=== PATIENT | female | born 1950 | race Caucasian/White ===

== ENCOUNTER 2018-12-29 15:51 | Inpatient (IN) ==
[2018-12-31] MEDS ORDERED: *HR* HYDROcodone/Acet 7.5/325 mg TABLET PO PRN ×2 (11:47→11:58)
[2018-12-31] MEDS ORDERED: MEPERIDINE HCL 50 MG PO PRN (11:48)
[2018-12-31] MEDS ORDERED: NON-FORMULARY MEDICATION 1 EACH EACH (Alendronate Sodium [Fosamax] 70 MG) PO SCH (12:00)
[2018-12-31] MEDS: *HR* HYDROcodone/Acet 5/325 mg TABLET PO PRN ×3 (13:02→22:03)
[2018-12-31] MEDS ORDERED: Aspirin 325 MG TABLET PO SCH (21:00)
[2018-12-31] MEDS: Aspirin 325 MG TABLET PO SCH (22:02)
[2018-12-31] MEDS: traZODone 50 MG TABLET PO SCH (22:04)
[2018-12-31] MEDS: FATTY ACIDS PO SCH (22:06)
[2018-12-31] MEDS: OMEGA PO SCH (22:06)
[2019-01-01 04:56] LABS: Basophils % 0.9 %; Eosinophils # 0.2 K/mcL (0.0-0.6); Eosinophils % 3.9 %; Hematocrit 25.5 % (35.3-44.9); Hemoglobin 8.3 g/dL (11.5-15.4); Immature Granulocytes % 0.4 % (0-4); Lymphocytes # 1.6 K/mcL (0.6-4.6); Lymphocytes % 33.5 %; Mean Corpuscular HGB Conc 32.5 g/dL (31.6-35.5); Mean Corpuscular Volume 92.1 fL (83.0-100.0); Mean Platelet Volume 8.7 fL (9.4-12.4); Monocytes # 0.4 K/mcL (0.0-1.3); Monocytes % 8.8 %; Neutrophils # 2.5 K/mcL (1.6-8.9); Platelet Count 222 K/mcL (140-400); Red Blood Count 2.77 M/mcL (3.82-4.97); Red Cell Distribution Width 13.6 % (11.5-14.5); Segmented Neutrophils % 52.5 %
[2019-01-01 05:13] LABS: BUN/Creatinine Ratio 14 (6-26); Blood Urea Nitrogen 10 mg/dL (8-23); Calcium 8.7 mg/dL (8.6-10.3); Carbon Dioxide 34 mEq/L (23-29); Chloride 103 mEq/L (98-107); Glucose 107 mg/dL (70-105); Osmolality,Calculated 294 (280-300); Potassium 3.5 mEq/L (3.5-5.1); Sodium 142 mEq/L (136-145); eGFR For Non-African Americans > 60 (> 60)
[2019-01-01] MEDS: *HR* HYDROcodone/Acet 5/325 mg TABLET PO PRN ×5 (05:20→23:55)
--- NOTE | 2019-01-01 07:15 | Internal Med History&Physical ---
Date of Encounter: 01/01/19 Time of Encounter: 07:08 Assessment and Plan (1) Status post revision of total replacement of left knee Current visit: Yes Status: Acute Status post left knee revision per Dr. Thomas at [facility]. She has limitations of flexion of the knee. She is to be in a knee immobilizer when not in physical therapy. She is touch toe weightbearing. Therapy may manipulate her knee to 30 degrees. She states her pain is under good control with hydrocodone. No obvious complications postoperatively. DVT prophylaxis is aspi rin twice a day per Dr. Thomas. I would have a low threshold in starting Lovenox as well. (2) History of palpitations Current visit: Yes Status: Chronic She takes a beta jeaneth for history of tachycardia/palpitations and is been well controlled. She does not have hypertension. (3) Fibromyalgia Current visit: Yes Status: Chronic She has a chronic history of fibromyalgia/chronic pain. At home she typically uses tramadol frequently and has meperidine for breakthrough pain. Currently we will keep her pain medication to hydrocodone postoperatively (4) Depression Current visit: Yes Status: Chronic Chronically she has depression. She is fairly well controlled with her trazodone and citalopram. She also has some anxiety and takes alprazolam occasionally. She is not suicidal. We will continue her chronic medication. Qualifiers: Depression Type: dysthymia Qualified Code(s): F34.1 - Dysthymic disorder (5) Anxiety Current visit: Yes Status: Chronic Patient chronically has anxiety mixed with depression. She has alprazolam for occasional use. She thinks she will need one in the evening when she becomes anxious and makes it difficult for her to sleep. (6) Postoperative anemia due to acute blood loss Current visit: Yes Status: Acute Her hemoglobin is now down to 8.3. The last hemoglobin in the [facility] records was 10. Her knee swelling and bruising is not extensive. We will recheck her count tomorrow. Internal Medicine - H&P: HPI Chief complaint: I am here after my knee surgery Admitted From: Hospital to Hospital Transfer Plans for Post Hospital Care: Home History of present illness: Ms. Ramos is a 68 year old female with known history of fibromyalgia, depression, anxiety who underwent revision left total knee arthroplasty with removal and insertion femoral and tibial components. She is here for rehab. She had no complications from her surgery. She thinks her pain is under adequate control. Chronically she has multiple medical problems including for myalgia, palpitations, chronic pain and depression. Currently she denies chest pain, palpitations, dyspnea, abdominal pain, GI or symptoms. The ice pack is helpful to her knee. Past Med Surg Social Fam HX - Past Medical History Source: patient, old records reviewed Medical history: arthritis, fibromyalgia, migraine, osteoporosis, valvular heart disease, other Additional medical history: mitral valve prolapse/palpitations, depression Psychiatric history: anxiety, depression - Past Surgical History Surgical History: appendectomy, breast surgery, cataract, cholecystectomy, hip replacement, hysterectomy, other Additional surgical history: breast implantsx2, breast implant removal, masectomy, upper teeth pulled, pneumothorax, pain stimulator. 02/26/17 MYELOGRAM @[facility]. bones removed bilat hands - Social History Smoking Status: Never smoker Smokeless Tobacco Status: No Alcohol use: none Drug use: none Occupational status: other Current living situation: Home - Independent, Other (She lives in a one-story home.) Activity Level: Independent ambulation (Independent ambulation at home, postop she requires a walker) Recent Out of Country Travel Within the Last 8 Weeks: No Exposure or Possible Exposure to Illness During Travel: No - Family History Brother Living Status: Still Living Hx Family Cancer: No (melanoma) Father Adopted: No Living Status: Hx Family Respiratory Disorders: Yes Hx Family Cancer: Yes (leukemia) Mother Living Status: Hx Family Respiratory Disorders: Yes Hx Family Cancer: Yes Sister Hx Family Cardiac Disorders: Yes Internal Medicine - H&P: Meds RX: Acebutolol HCl [Sectral] 200 mg PO HS 06/20/15 [History] RX: Alprazolam [Xanax] 1 mg PO TID PRN 06/20/15 [History] RX: Calcium Carbonate/Vitamin D3 [Calcium 600 + D Tablet] 1 each PO DAILY 07/28/15 [History] RX: Citalopram [CeleXA] 40 mg PO 2100 07/28/15 [History] [place]-3 Fatty Acids [Fish Oil] 1,400 mg PO HS 05/17/16 [History] Promethazine [Phenergan] 25 mg PO Q6HR PRN 07/23/16 [History] Simvastatin [Zocor] 20 mg PO DAILY 07/23/16 [History] Alendronate Sodium [Fosamax] 70 mg PO QWEEK 12/07/18 [History] Mv, Min #36/Iron,Carbonyl/FA [Geritol Complete Tablet] 1 each PO DAILY 12/07/18 [History] RX: Meperidine HCl 50 mg PO Q6HR PRN 12/07/18 [History] RX: traZODone [TraZODone] 150 mg PO 2100 12/07/18 [History] Multivitamin [Daily Multiple Vitamin] 1 each PO DAILY 12/31/18 [History] Allergy/AdvReac Type Severity Reaction Status Date / Time methylprednisolone Allergy Mild Rash Verified 05/04/17 13:25 [From Solu-Medrol] oxycodone [From Percocet] Allergy Mild Rash Verified 05/04/17 13:25 Penicillins [PCN] Allergy Mild Rash Verified 05/04/17 13:25 acetaminophen [From Vicodin] AdvReac Mild Nausea Verified 05/04/17 13:25 bupropion AdvReac Mild Hallucinati Verified 05/04/17 13:25 ng gabapentin AdvReac Mild Nausea Verified 05/04/17 13:25 hydrocodone [From Vicodin] AdvReac Mild Nausea Verified 05/04/17 13:25 morphine [From MS Contin] AdvReac Mild Confusion Verified 05/04/17 13:25 naproxen [From Naprosyn] AdvReac Mild Nausea Verified 05/04/17 13:25 amlodipine AdvReac Unknown UNKNOWN Verified 05/04/17 13:25 metoclopramide [From Reglan] AdvReac Unknown UNKNOWN Verified 03/11/17 15:05 pregabalin [From Lyrica] AdvReac Unknown UNKNOWN Verified 03/11/17 15:05 zonisamide AdvReac Unknown UNKNOWN Verified 03/11/17 15:05 - Constitutional Constitutional: no chills, no fever(s) - EENT Eyes: no change in vision Ears: no ear pain Nose, mouth and throat: no sore throat - Cardiovascular Cardiovascular ROS IM: no chest pain, no diaphoresis, no palpitations - Respiratory Respiratory: no cough, no dyspnea, no chest congestion - Gastrointestinal Gastrointestinal: no constipation, no diarrhea, no loose stools, no nausea, no vomiting - Genitourinary Genitourinary: no difficulty urinating, no urinary frequency, no urinary incontinence - Musculoskeletal Musculoskeletal ROS IM: as per HPI, limited range of motion (Recommended to not flex the left knee and to use a knee immobilizer when not in therapy.) - Integumentary Integumentary IM: no rash - Neurological Neurological ROS: no confusion, no dizziness, no focal weakness - Psychiatric Psychiatric: anxiety (Patient has anxiety chronically, wants to know if she can use alprazolam in the evening if she becomes anxious before bedtime) - Constitutional Vitals: Temp Pulse Resp BP Pulse Ox 98.0 F 71 16 107/66 94 01/01/19 04:00 01/01/19 04:00 01/01/19 04:00 01/01/19 04:00 01/01/19 04:00 General appearance: Present: mild distress, A&O X 3 - Eye Additional comments: Chronically left eyelid is slightly ptotic compared to the right. EOMI - ENT ENT exam: Present: normal oropharynx (Upper set of dentures) - Respiratory Respiratory exam: Present: CTAB. Absent: respiratory distress - Cardiovascular Cardiovascular exam: Present: RRR, +S1, +S2 - GI/Abdominal GI/Abdominal exam: Present: soft. Absent: hepatomegaly, mass, tenderness - Extremities Exam Additional comments: Left lower extremity is in a knee immobilizer. The incision has a dressing which is intact and no signs of bleeding or drainage. Mild/appropriate swelling at the knee joint. Slight bruising in the left lateral knee and popliteal area. Mildly warm throughout. Slight swelling of the left lower extremity compared to the right. No calf tenderness. Negative Homans sign. No skin breakdown. Left heel is without skin breakdown. Right lower extremity is normal with good range of motion, no calf tenderness. No edema. - Incison Comments: Incision has an adhesive dressing which is intact. No bleeding or drainage noted. No surrounding redness or signs of infection. - Neurological Exam Neurological exam: Present: oriented X3, no focal deficits - Psychiatric Psychiatric exam: Present: flat affect Internal Med - H&P Results - Labs CBC & Chem 7: 01/01/19 04:49 01/01/19 04:49 Labs: Short CBC 01/01/19 Range/Units 04:49 WBC 4.7 (4.3-11.1) K/mcL Hgb 8.3 L (11.5-15.4) g/dL Hct 25.5 L (35.3-44.9) % Plt Count 222 (140-400) K/mcL Neutrophils # 2.5 (1.6-8.9) K/mcL BMP 01/01/19 04:49 Sodium 142 Potassium 3.5 Chloride 103 Carbon Dioxide 34 H BUN 10 Creatinine 0.69 Glucose 107 H Calcium 8.7 Hemoglobin 8.3. Previous was 10 at [facility].
[2019-01-01] MEDS ORDERED: MV MIN PO SCH (09:00)
[2019-01-01] MEDS ORDERED: [UNRECOGNIZED DRUG - OTHER] PO SCH (09:00)
[2019-01-01] MEDS ORDERED: NON-FORMULARY MEDICATION 1 EACH EACH (Calcium Carbonate/Vitamin D3 [Calcium 600 + D Tablet PO SCH (09:00)
[2019-01-01] MEDS ORDERED: IRON CARBONYL PO SCH (09:00)
[2019-01-01] MEDS: Cholecalciferol (D-3) 1,000 UNIT TABLET PO SCH (09:18)
[2019-01-01] MEDS: Aspirin 325 MG TABLET PO SCH ×2 (09:18→20:59)
[2019-01-01] MEDS: Multivit/Ca/Min/Fe/FA 1 TAB TABLET PO SCH (09:19)
--- NOTE | 2019-01-01 19:57 | Event Note ---
Date of Encounter: 01/01/19 Time of Encounter: 19:57 I checked on this patient this evening to see how she was doing. Her biggest complaint is "migraine headache". She received hydrocodone as her postop pain medication a few hours ago. We gave her promethazine that she frequently will use if she gets a migraine headache and has to come to the emergency room. She seems to be resting quietly, she said she was not sleeping though. I told her that we can repeat the promethazine as helpful, she will have her alprazolam tonight for anxiety and sleep as well. She is not due for her hydrocodone for a couple of hours. I told her we are trying to avoid oversedation and overmedication with opiates. In the past she has not tolerated Imitrex or other traditional migraine headache medications. She states she has pain in the anterior velez after therapy. I believe it is because she is touched toe only and she has strained that region. She has no calf tenderness. She currently has a polar pack on her knee, but it is not cold now and needs to be re-iced. Her vitals are stable. She is resting quietly in bed.
[2019-01-01] MEDS: ALPRAZolam 1 MG TABLET PO PRN (21:00)
[2019-01-01] MEDS: traZODone 50 MG TABLET PO SCH (21:01)
[2019-01-01] MEDS: FATTY ACIDS PO SCH (21:03)
[2019-01-01] MEDS: OMEGA PO SCH (21:03)
[2019-01-02] MEDS: *HR* HYDROcodone/Acet 5/325 mg TABLET PO PRN ×4 (06:30→18:47)
[2019-01-02 07:19] LABS: Chol/HDL Ratio 3.6 (0-4.9)
[2019-01-02] MEDS: Cholecalciferol (D-3) 1,000 UNIT TABLET PO SCH (08:09)
[2019-01-02] MEDS: Multivit/Ca/Min/Fe/FA 1 TAB TABLET PO SCH (08:09)
[2019-01-02] MEDS: Aspirin 325 MG TABLET PO SCH ×2 (08:09→22:02)
--- NOTE | 2019-01-02 17:34 | Internal Med Progress Note ---
Date of Encounter: 01/02/19 Time of Encounter: 13:40 - Subjective Interval history: Assessment and Plan (1) Status post revision of total replacement of left knee Current visit: Yes Status: Acute Status post left knee revision per Dr. Thomas at [facility]. She has limitations of flexion of the knee. She is to be in a knee immobilizer when not in physical therapy. She is touch toe weightbearing. Therapy may manipulate her knee to 30 degrees. She states her pain is under good control with hydrocod one. No obvious complications postoperatively. DVT prophylaxis is aspirin twice a day per Dr. Thomas. She is not moving much, will start Lovenox as well due to poor mobility. (2) History of palpitations Current visit: Yes Status: Chronic She takes a beta jeaneth for history of tachycardia/palpitations and is been well controlled. No chest pain. She does not have hypertension. (3) Fibromyalgia Current visit: Yes Status: Chronic She has a chronic history of fibromyalgia/chronic pain. At home she typically uses tramadol frequently and has meperidine for breakthrough pain. Currently we will keep her pain medication to hydrocodone postoperatively (4) Depression Current visit: Yes Status: Chronic Chronically she has depression. She is fairly well controlled with her trazodone and citalopram. She also has some anxiety and takes alprazolam occasi onally. She is not suicidal. We will continue her chronic medication. Qualifiers: Depression Type: dysthymia Qualified Code(s): F34.1 - Dysthymic disorder (5) Anxiety Current visit: Yes Status: Chronic Patient chronically has anxiety mixed with depression. She has alprazolam for occasional use. She thinks she will need one in the evening when she becomes anxious and makes it difficult for her to sleep. (6) Postoperative anemia due to acute blood loss Current visit: Yes Status: Acute Her hemoglobin is now down to 8.3. The last hemoglobin in the [facility] records was 10. No excessive blood loss or bleeding active. We will follow count Interval History Ms. Ramos is a 68 year old female with known history of fibromyalgia, depression, anxiety who underwent revision left total knee arthroplasty with removal and insertion femoral and tibial components. She is here for rehab. She had no complications from her surgery. She is eating fair Had good BM today She says pain is controlled Chronically she has multiple medical problems including for myalgia, palpitations, chronic pain and depression. Currently she denies chest pain, palpitations, dyspnea, abdominal pain, GI or symptoms. EXAM: General appearance: Present: mild distress, A&O X 3 thin WF - Eye Additional comments: Chronically left eyelid is slightly ptotic compared to the right. EOMI - ENT ENT exam: Present: normal oropharynx (Upper set of dentures) - Respiratory Respiratory exam: Present: CTAB. Absent: respiratory distress - Cardiovascular Cardiovascular exam: Present: RRR, +S1, +S2 - GI/Abdominal GI/Abdominal exam: Present: soft. Absent: hepatomegaly, mass, tenderness - Extremities Exam Additional comments: Left lower extremity has superficial excoriation to mid velez. She was in a knee immobilizer. Stated feeling that the hose caused rub on velez. There are no signs of bleeding or drainage. Mild/appropriate swelling at the knee joint. Slight bruising in the left lateral knee and popliteal area. Mildly warm throughout. Slight swelling of the left lower extremity compared to the right. No calf tenderness. Left heel is without skin breakdown. Right lower extremity is normal with good range of motion, no calf tenderness. - Neurological Exam Neurological exam: Present: oriented X3, no focal deficits - Psychiatric Psychiatric exam: Present: alert oriented talkative slight flat affect - Constitutional Vitals: Temp Pulse Resp BP Pulse Ox 97.8 F 69 15 120/54 97 01/02/19 07:47 01/02/19 07:47 01/02/19 07:47 01/02/19 07:47 01/02/19 07:47 General appearance: Present: mild distress, A&O X 3 Internal Medicine: Result - Labs CBC & Chem 7: 01/02/19 06:25 01/01/19 04:49 Labs: Short CBC 01/02/19 Range/Units 06:25 Hgb 8.4 L (11.5-15.4) g/dL Consult Discharge Plan - Plan Referrals: John Patel MD [Primary Care Provider] -
[2019-01-02] MEDS: ALPRAZolam 1 MG TABLET PO PRN (18:52)
[2019-01-02] MEDS: Ketorolac 30 MG/ML VIAL IM PRN (20:34)
[2019-01-02] MEDS ORDERED: *HR* LORazepam 0.5 MG TABLET PO ONE (21:48)
[2019-01-02] MEDS: Famotidine 20 MG TABLET PO SCH (22:04)
[2019-01-02] MEDS: traZODone 50 MG TABLET PO SCH (22:04)
[2019-01-02] MEDS: FATTY ACIDS PO SCH (22:06)
[2019-01-02] MEDS: OMEGA PO SCH (22:06)
[2019-01-03] MEDS: *HR* HYDROcodone/Acet 5/325 mg TABLET PO PRN ×5 (00:41→22:42)
[2019-01-03 05:16] LABS: Hematocrit 25.4 % (35.3-44.9); Hemoglobin 7.9 g/dL (11.5-15.4); Mean Corpuscular HGB Conc 31.1 g/dL (31.6-35.5); Mean Corpuscular Hemoglobin 29.4 pg (28.0-33.3); Mean Corpuscular Volume 94.4 fL (83.0-100.0); Mean Platelet Volume 8.8 fL (9.4-12.4); Platelet Count 299 K/mcL (140-400); Red Blood Count 2.69 M/mcL (3.82-4.97); Red Cell Distribution Width 14.3 % (11.5-14.5)
[2019-01-03] MEDS ORDERED: *HR* Enoxaparin 30 MG/0.3 ML SYRINGE SQ SCH (06:00)
[2019-01-03] MEDS: Cholecalciferol (D-3) 1,000 UNIT TABLET PO SCH (08:19)
[2019-01-03] MEDS: Aspirin 325 MG TABLET PO SCH ×2 (08:19→20:45)
[2019-01-03] MEDS: Multivit/Ca/Min/Fe/FA 1 TAB TABLET PO SCH (08:19)
[2019-01-03] MEDS: Famotidine 20 MG TABLET PO SCH ×2 (08:19→20:45)
[2019-01-03] MEDS: ALPRAZolam 1 MG TABLET PO PRN ×2 (08:22→18:36)
[2019-01-03] MEDS: Ketorolac 30 MG/ML VIAL IM PRN (08:23)
--- NOTE | 2019-01-03 13:17 | Internal Med Progress Note ---
Date of Encounter: 01/03/19 Time of Encounter: 01:04 - Subjective Interval history: Assessment and Plan (1) Status post revision of total replacement of left knee Current visit: Yes Status: Acute PT remains weak and wanting to lay in bed. See Interval Hx below. Status post left knee revision per Dr. Thomas at [facility]. She has limitations of flexion of the knee. She is to be in a knee immobilizer when not in physical therapy. She is touch toe weightbearing. Therapy may manipulate her knee to 30 degrees. She is on oral hydrocodone. No obvious complications postoperatively. DVT prophylaxis is aspirin twice a day per Dr. Thomas. (2) History of palpitations Current visit: Yes Status: Chronic She takes a beta jeaneth for history of tachycardia/palpitations and is been well controlled. No chest pain. She does not have hypertension. (3) Fibromyalgia Current visit: Yes Status: Chronic She has a chronic history of fibromyalgia/chronic pain. At home she typically uses tramadol frequently and has meperidine for breakthrough pain. Currently we will keep her pain medication to hydrocodone postoperatively (4) Depression Current visit: Yes Status: Chronic Chronically she has depression. She is fairly well controlled with her trazodone and citalopram. She also has some anxiety and takes alprazolam occasionally. She is not suicidal. We will continue her chronic medication. Qualifiers: Depression Type: dysthymia Qualified Code(s): F34.1 - Dysthymic disorder (5) Anxiety Current visit: Yes Status: Chronic Patient chronically has anxiety mixed with depression. She has alprazolam for occasional use. She thinks she will need one in the evening when she becomes anxious and makes it difficult for her to sleep. (6) Postoperative anemia due to acute blood loss Current visit: Yes Status: Acute Her hemoglobin is now down to 8.3. The last hemoglobin in the [facility] records was 10. No excessive blood loss or bleeding active. We will follow count Interval History O Overnight PT had increased anxiety. She then reported increased pain to left knee. She was given 0.5 mg ativan po extra and toradol was given. PT requesting more narcotic. PT eventually did get relief. Today pt had comfortable morning but then about lunch time again reporting 9/10 pain. No change in exam of knee. Her HR and BP are not elevated with complaint of pain. Pt had oral pain med at about 9 30 am. Discussed with pharmacist. Plan will be to keep her narcotic and benzo same and add Toradol 15 mg q 6H x total 4 more days - since has had 1 day of toradol already, will follow cbc and renal function will DC caitlinx Ms. Ramos is a 68 year old female with known history of fibromyalgia, depression, anxiety who underwent revision left total knee arthroplasty with removal and insertion femoral and tibial components. She is here for rehab. She had no complications from her surgery. She is eating fair and BM inproved Chronically she has multiple medical problems including for myalgia, palpitations, chronic pain and depression. Currently she denies chest pain, palpitations, dyspnea, EXAM: General appearance: Present: laying in bed tucked in covers. A&O X 3 thin WF - Eye Additional comments: Chronically left eyelid is slightly ptotic compared to the right. EOMI - ENT ENT exam: Present: normal oropharynx (Upper set of dentures) - Respiratory Respiratory exam: Present: CTAB. Absent: respiratory distress - Cardiovascular Cardiovascular exam: Present: RRR, +S1, +S2 - GI/Abdominal GI/Abdominal exam: Present: soft. Absent: hepatomegaly, mass, tenderness - Extremities Exam Additional comments: Left lower extremity has superficial excoriation to mid velez. Has dressing. There are no signs of bleeding or drainage. Mild/appropriate swelling at the knee joint. Slight bruising in the left lateral knee and popliteal area. Mildly warm throughout. Slight swelling of the left lower extremity compared to the right. No calf tenderness. Right lower extremity is normal with good range of motion, no calf tenderness. - Neurological Exam Neurological exam: Present: oriented X3, no focal deficits - Psychiatric Psychiatric exam: Present: alert oriented talkative slight flat affect - Constitutional Vitals: Temp Pulse Resp BP Pulse Ox 97.8 F 77 16 106/68 94 01/03/19 07:55 01/03/19 07:55 01/03/19 07:55 01/03/19 07:55 01/03/19 07:55 Internal Medicine: Result - Labs CBC & Chem 7: 01/03/19 04:39 01/01/19 04:49 Labs: Short CBC 01/03/19 Range/Units 04:39 WBC 5.1 (4.3-11.1) K/mcL Hgb 7.9 L (11.5-15.4) g/dL Hct 25.4 L (35.3-44.9) % Plt Count 299 (140-400) K/mcL Consult Discharge Plan - Plan Referrals: John Patel MD [Primary Care Provider] -
[2019-01-03] MEDS: Ketorolac 30 MG/ML VIAL IVP SCH ×2 (14:56→18:28)
[2019-01-03] MEDS: OMEGA PO SCH (20:28)
[2019-01-03] MEDS: FATTY ACIDS PO SCH (20:28)
[2019-01-03] MEDS: traZODone 50 MG TABLET PO SCH (20:44)
[2019-01-04] MEDS: Ketorolac 30 MG/ML VIAL IVP SCH ×4 (00:27→17:42)
[2019-01-04 05:16] LABS: Hematocrit 24.7 % (35.3-44.9); Hemoglobin 7.9 g/dL (11.5-15.4); Mean Corpuscular Hemoglobin 29.8 pg (28.0-33.3); Mean Corpuscular Volume 93.2 fL (83.0-100.0); Mean Platelet Volume 8.8 fL (9.4-12.4); Platelet Count 312 K/mcL (140-400); Red Blood Count 2.65 M/mcL (3.82-4.97); Red Cell Distribution Width 14.5 % (11.5-14.5)
[2019-01-04] MEDS: *HR* HYDROcodone/Acet 5/325 mg TABLET PO PRN ×4 (05:45→20:12)
--- NOTE | 2019-01-04 07:00 | Internal Med Progress Note ---
Date of Encounter: 01/04/19 Time of Encounter: 06:55 - Assessment and plan (1) Status post revision of total replacement of left knee Current Visit: Yes Status: Acute Assessment and plan: She will resume therapy today. She still has limitations of no more than 30 degrees of flexion with therapy. Touch toe weightbearing only. Pain control has been an issue this weekend and I discussed with nursing staff. She does not seem to be in any discomfort though sometimes she rates her pain as a 10. She sleeps well through the night. She has required Toradol IV in addition to the hydrocodone. Expectations discussed. I spoke with therapy regarding reassurance to the patient in moving forward. I think her perception and anx iety about the pain is out of proportion to the findings. (2) History of palpitations Current Visit: Yes Status: Chronic Assessment and plan: No cardiac symptoms and pulse is normal and stable (3) Fibromyalgia Current Visit: Yes Status: Chronic (4) Depression Current Visit: Yes Status: Chronic Assessment and plan: Continues with antidepressant. I think her depression and personality has a lot to do with her perception of pain as well Qualifiers: Depression Type: dysthymia Qualified Code(s): F34.1 - Dysthymic disorder (5) Anxiety Current Visit: Yes Status: Chronic Assessment and plan: Continues with her angiolytic. Nurse discussed with patient about avoiding overuse. (6) Postoperative anemia due to acute blood loss Current Visit: Yes Status: Acute Assessment and plan: Hemoglobin is stable 7.9. Vitals are stable. No need for transfusion yet. - Subjective Interval history: Patient states that she had a rough weekend because of pain. She also has abrasion type skin breakdown on her anterior velez which I suspect is from her stockings and her knee immobilizer. She denies a cardiac respiratory symptoms. She states her bowels and bladder are working well. - Constitutional Vitals: Temp Pulse Resp BP Pulse Ox 98.4 F 78 16 109/63 93 01/03/19 19:03 01/03/19 19:03 01/03/19 19:03 01/04/19 05:37 01/03/19 19:03 General appearance: Present: A&O X 3, no acute distress, answers questions appropriately - Respiratory Respiratory exam: Present: CTAB - Cardiovascular Cardiovascular exam: Present: RRR, +S1, +S2 - GI/Abdominal GI/Abdominal exam: Present: soft. Absent: tenderness - Extremities Exam Additional comments: Left knee shows appropriate amount of swelling postop. No significant bruising. Left anterior velez shows slight blue discoloration from bruising as well as 3 superficial abraded areas in a line along the spine of the tibia. No secondary infection. No heel breakdown. Negative Homans sign. No swelling in calf or ankle or foot. Dressing intact. - Incison Comments: Midline dressing is intact. No drainage, no redness, no signs of secondary infection. Internal Medicine: Result - Labs CBC & Chem 7: 01/04/19 05:05 01/01/19 04:49 Labs: Short CBC 01/04/19 Range/Units 05:05 WBC 5.0 (4.3-11.1) K/mcL Hgb 7.9 L (11.5-15.4) g/dL Hct 24.7 L (35.3-44.9) % Plt Count 312 (140-400) K/mcL Hemoglobin 7.9/stable Consult Discharge Plan - Plan Referrals: John Patel MD [Primary Care Provider] -
[2019-01-04] MEDS: Cholecalciferol (D-3) 1,000 UNIT TABLET PO SCH (09:40)
[2019-01-04] MEDS: Famotidine 20 MG TABLET PO SCH ×2 (09:40→20:11)
[2019-01-04] MEDS: Aspirin 325 MG TABLET PO SCH ×2 (09:41→20:09)
[2019-01-04] MEDS: Multivit/Ca/Min/Fe/FA 1 TAB TABLET PO SCH (09:41)
[2019-01-04] MEDS: OMEGA PO SCH (19:45)
[2019-01-04] MEDS: FATTY ACIDS PO SCH (19:45)
[2019-01-04] MEDS: traZODone 50 MG TABLET PO SCH (20:09)
[2019-01-04] MEDS: ALPRAZolam 1 MG TABLET PO PRN (20:17)
[2019-01-05] MEDS: Ketorolac 30 MG/ML VIAL IVP SCH ×3 (00:13→12:27)
[2019-01-05] MEDS: *HR* HYDROcodone/Acet 5/325 mg TABLET PO PRN ×5 (00:14→18:01)
[2019-01-05 07:07] LABS: Hematocrit 24.9 % (35.3-44.9); Mean Corpuscular HGB Conc 32.1 g/dL (31.6-35.5); Mean Corpuscular Hemoglobin 29.6 pg (28.0-33.3); Mean Corpuscular Volume 92.2 fL (83.0-100.0); Mean Platelet Volume 8.2 fL (9.4-12.4); Platelet Count 361 K/mcL (140-400); Red Cell Distribution Width 14.7 % (11.5-14.5)
[2019-01-05] MEDS: Famotidine 20 MG TABLET PO SCH ×2 (09:44→20:03)
[2019-01-05] MEDS: Multivit/Ca/Min/Fe/FA 1 TAB TABLET PO SCH (09:44)
[2019-01-05] MEDS: Cholecalciferol (D-3) 1,000 UNIT TABLET PO SCH (09:45)
[2019-01-05] MEDS: Aspirin 325 MG TABLET PO SCH ×2 (09:45→20:01)
--- NOTE | 2019-01-05 17:09 | Internal Med Progress Note ---
Date of Encounter: 01/05/19 Time of Encounter: 17:06 - Assessment and plan (1) Status post revision of total replacement of left knee Current Visit: Yes Status: Acute Assessment and plan: She has done amazingly well, she is now independent in the room and swell as being able to ambulate to the gift shop and back. Plan for discharge tomorrow and arranged outpatient physical therapy. We discussed post-discharge pain medication, appointment with Dr. Thomas and outpatient therapy. (2) History of palpitations Current Visit: Yes Status: Chronic Assessment and plan: No cardiac symptoms. (3) Fibromyalgia Current Visit: Yes Status: Chronic (4) Depression Current Visit: Yes Status: Chronic Qualifiers: Depression Type: dysthymia Qualified Code(s): F34.1 - Dysthymic disorder (5) Anxiety Current Visit: Yes Status: Chronic (6) Postoperative anemia due to acute blood loss Current Visit: Yes Status: Acute Assessment and plan: Hemoglobin is stable at 8 g. - Subjective Interval history: "I feel I can go home tomorrow". Patient states she still has pain in the knee, as expected. But she is advancing well and can do all of the activities as requested within the restrictions of needing the knee immobilizer and touch toe with ambulation. She denies a cardiac respiratory symptoms. She is eating well. She is able to ambulate all the way to the gift shop and back. - Constitutional Vitals: Temp Pulse Resp BP Pulse Ox 98.4 F 75 16 121/81 95 01/05/19 07:44 01/05/19 07:44 01/05/19 07:44 01/05/19 07:44 01/05/19 07:44 General appearance: Present: A&O X 3, no acute distress, answers questions appropriately - Respiratory Respiratory exam: Present: CTAB - Cardiovascular Cardiovascular exam: Present: RRR, +S1, +S2 - Extremities Exam Additional comments: Appropriate swelling of the left knee. Dressing is intact and dry and clean. A red area measuring about 2 cm in diameter lateral aspect of the knee likely from pressure from the knee immobilizer. There is no redness around the dressing. There is no purulent drainage. Scant amount of bruising posteriorly. The left anterior velez still shows dressing intact covering abrasion with 3 small excoriated areas without secondary infection. No pedal edema. Heel shows no breakdown or blisters or softening. No calf tenderness. - Incison Comments: Dressing is clean and dry. No signs of secondary infection. Internal Medicine: Result - Labs CBC & Chem 7: 01/05/19 06:45 01/01/19 04:49 Labs: Short CBC 01/05/19 Range/Units 06:45 WBC 5.0 (4.3-11.1) K/mcL Hgb 8.0 L (11.5-15.4) g/dL Hct 24.9 L (35.3-44.9) % Plt Count 361 (140-400) K/mcL Hemoglobin is stable at 8.0 g Consult Discharge Plan - Plan Referrals: John Patel MD [Primary Care Provider] -
[2019-01-05] MEDS: ALPRAZolam 1 MG TABLET PO PRN (18:03)
[2019-01-05] MEDS: Ketorolac 30 MG/ML VIAL IVP PRN (19:45)
[2019-01-05] MEDS: FATTY ACIDS PO SCH (20:02)
[2019-01-05] MEDS: OMEGA PO SCH (20:02)
[2019-01-05] MEDS: traZODone 50 MG TABLET PO SCH (20:05)
[2019-01-06] MEDS: *HR* HYDROcodone/Acet 5/325 mg TABLET PO PRN ×2 (00:47→05:05)
[2019-01-06 07:29] VITALS: BP 112/71
[2019-01-06] MEDS: Multivit/Ca/Min/Fe/FA 1 TAB TABLET PO SCH (07:51)
[2019-01-06] MEDS: Famotidine 20 MG TABLET PO SCH (07:51)
[2019-01-06] MEDS: Cholecalciferol (D-3) 1,000 UNIT TABLET PO SCH (07:51)
[2019-01-06] MEDS: Ketorolac 30 MG/ML VIAL IVP PRN (08:01)
--- NOTE | 2019-01-06 09:57 | Discharge Summary ---
- NOTES TO OUTPATIENT PROVIDER Notes to Outpatient Provider: #1. Patient was discharged on hydrocodone/acetaminophen 5/325 up to every 4 hours when necessary #42 prescribed. [facility] report is up-to-date. #2. She starts outpatient physical therapy tomorrow. #3 patient follows up with Dr. Thomas next week. Date of Encounter: 01/06/19 Time of Encounter: 09:52 - Discharge Diagnosis (1) Status post revision of total replacement of left knee Priority: Primary Status: Acute Comments: Patient underwent revision left total knee replacement by Dr. Thomas. She came to our rehabilitation unit and had PT and OT recreational therapy. She advanced very nicely and is now independent within the limits of using her knee immobilizer all the time except during physical therapy when they can do 30 degrees of range of motion. She is independent in the room, she is able to ambulate 100s of feet with touch toe and walker ambulation. Her pain has been under adequate control with hydrocodone/acetaminophen 5/325 every 4-6 hours when necessary. She did require supplemental pain control with Toradol intravenously for a few days. She will start outpatient physical therapy tomorrow and will see Dr. phillips with a follow-up next week. Her house is all on one floor, she has handicapped equipment in the bathroom and her is available for assistance. (2) History of palpitations Priority: Secondary Status: Chronic Comments: She has had no cardiac palpitations and she continued her acebutolol as her home medication. (3) Fibromyalgia Priority: Secondary (Chronic history of fibromyalgia and under good control.) Status: Chronic (4) Depression Priority: Secondary (We continued her citalopram for depression.) Status: Chronic Qualifiers: Depression Type: dysthymia Qualified Code(s): F34.1 - Dysthymic disorder (5) Anxiety Priority: Secondary (Patient has when necessary use of alprazolam chronically for anxiety without complication. We discussed the risk of benzodiazepine use with narcotic use) Status: Chronic (6) Postoperative anemia due to acute blood loss Priority: Secondary Status: Chronic Comments: Her latest hemoglobin was 8.0. She will continue her iron 3 times a day for the next month. Prescription has been sent to pharmacy. Hospital course: Ms. Ramos is a 68 year old female Discharge discussed with: patient, family - Time Spent with Patient Total time spent providing and/or coordinating discharge services: - Discharge Medications Prescriptions: New HYDROcodone/Acet 5/325 mg [[place] 5-325 mg] 1 tab PO Q4HR PRN 7 Days #42 tablet PRN Reason: Moderate Pain Aspirin 325 mg PO BID tablet Ferrous Sulfate 325 mg PO TIDWM #90 tablet Continue Citalopram [CeleXA] 40 mg PO 2100 Calcium Carbonate/Vitamin D3 [Calcium 600 + D Tablet] 1 each PO DAILY Acebutolol HCl [Sectral] 200 mg PO HS Alprazolam [Xanax] 1 mg PO TID PRN PRN Reason: Anxiety [place]-3 Fatty Acids [Fish Oil] 1,400 mg PO HS Simvastatin [Zocor] 20 mg PO DAILY Promethazine [Phenergan] 25 mg PO Q6HR PRN PRN Reason: Nausea Mv, Min #36/Iron,Carbonyl/FA [Geritol Complete Tablet] 1 each PO DAILY Alendronate Sodium [Fosamax] 70 mg PO QWEEK traZODone [TraZODone] 150 mg PO 2100 Multivitamin [Daily Multiple Vitamin] 1 each PO DAILY Discontinued Meperidine HCl 50 mg PO Q6HR PRN PRN Reason: Pain Home Medications: Acebutolol HCl [Sectral] 200 mg PO HS 06/20/15 [History] Alprazolam [Xanax] 1 mg PO TID PRN 06/20/15 [History] Calcium Carbonate/Vitamin D3 [Calcium 600 + D Tablet] 1 each PO DAILY 07/28/15 [History] Citalopram [CeleXA] 40 mg PO 2100 07/28/15 [History] [place]-3 Fatty Acids [Fish Oil] 1,400 mg PO HS 05/17/16 [History] Promethazine [Phenergan] 25 mg PO Q6HR PRN 07/23/16 [History] Simvastatin [Zocor] 20 mg PO DAILY 07/23/16 [History] Alendronate Sodium [Fosamax] 70 mg PO QWEEK 12/07/18 [History] Mv, Min #36/Iron,Carbonyl/FA [Geritol Complete Tablet] 1 each PO DAILY 12/07/18 [History] traZODone [TraZODone] 150 mg PO 2100 12/07/18 [History] Multivitamin [Daily Multiple Vitamin] 1 each PO DAILY 12/31/18 [History] Aspirin 325 mg PO BID tablet 01/06/19 [Rx] Ferrous Sulfate 325 mg PO TIDWM #90 tablet 01/06/19 [Rx] HYDROcodone/Acet 5/325 mg [[place] 5-325 mg] 1 tab PO Q4HR PRN 7 Days #42 tablet 01/06/19 [Rx] Allergies/Adverse Reactions: Allergy/AdvReac Type Severity Reaction Status Date / Time methylprednisolone Allergy Mild Rash Verified 05/04/17 13:25 [From Solu-Medrol] oxycodone [From Percocet] Allergy Mild Rash Verified 05/04/17 13:25 Penicillins [PCN] Allergy Mild Rash Verified 05/04/17 13:25 acetaminophen [From Vicodin] AdvReac Mild Nausea Verified 05/04/17 13:25 bupropion AdvReac Mild Hallucinati Verified 05/04/17 13:25 ng gabapentin AdvReac Mild Nausea Verified 05/04/17 13:25 hydrocodone [From Vicodin] AdvReac Mild Nausea Verified 05/04/17 13:25 morphine [From MS Contin] AdvReac Mild Confusion Verified 05/04/17 13:25 naproxen [From Naprosyn] AdvReac Mild Nausea Verified 05/04/17 13:25 amlodipine AdvReac Unknown UNKNOWN Verified 05/04/17 13:25 metoclopramide [From Reglan] AdvReac Unknown UNKNOWN Verified 03/11/17 15:05 pregabalin [From Lyrica] AdvReac Unknown UNKNOWN Verified 03/11/17 15:05 zonisamide AdvReac Unknown UNKNOWN Verified 03/11/17 15:05 Date of admission: 12/31/18 11:31 Primary care physician: John Patel MD Consults: 12/31/18 11:50 Consult to Occupational Therapy [CONS] Routine Comment: Evaluate, develop and implement POC Reason for Consult: s/p left knee revision Does patient have active BEDREST order?: No Is patient medically & hemodynamically stable?: Yes Consult to Physical Medicine/Rehab [CONS] Routine Reason for Consult: s/p left knee revision Call Completed: Yes Consult to Physical Therapy [CONS] Routine Comment: Evaluate, develop and implement POC Reason for Consult: s/p left knee revision, 0-30 degree ROM per PT Does patient have active BEDREST order?: No Is patient medically & hemodynamically stable?: Yes Consult to Recreational Therapy [CONS] Routine Comment: Evaluate, develop and implement POC Consult to Informatics Consultant [CONS] Routine Reason for SW Consult: discharge planning 12/31/18 14:48 Consult to Nutrition [CONS] Routine Comment: Consulting Provider: NUTRITION Reason for Dietary Consult: MST Score Discharging clinician: John Patel Anticipated date of discharge: 01/06/19 - Constitutional Vitals: Temp Pulse Resp BP Pulse Ox 98.3 F 69 16 112/71 96 01/06/19 07:00 01/06/19 07:00 01/06/19 07:00 01/06/19 07:00 01/06/19 07:00 General appearance: Present: A&O X 3, no acute distress, answers questions appropriately - Respiratory Respiratory exam: Present: CTAB - Cardiovascular Cardiovascular exam: Present: RRR, +S1, +S2 - GI/Abdominal GI/Abdominal exam: Present: soft. Absent: tenderness - Extremities Exam Additional comments: Her left knee shows dressing to be intact without new drainage. No signs of secondary infection. Has appropriate swelling and bruising. No calf tenderness. No sign of DVT. - Incison Comments: The original surgical postop dressing is intact. No signs of secondary infection. - Patient Status Disposition: Home, Self-Care Condition: Good Functional capacity at discharge: uses cane/walker Overall status at discharge: patient is progressing back to baseline - Discharge Instructions Follow Up With: Rajesh Thomas MD [Non-Partnered Physician] - 01/12/19 2:25 pm Additional Instructions: ROM 0-30 degrees with therapy only, immobilized when up, may take off in bed but don't bend knee , polar cube as needed - Diet and Activity Activity: ambulate only with your walker, as per physical therapy Diet: advance to your usual diet
[2019-01-06] MEDS: Aspirin 325 MG TABLET PO SCH (10:20)
== END 2019-01-06 11:01 | disposition home or self-care (01) | DRG 560 ==
LOC: INPGRE 12-31 11:31
PROVIDERS: ADMIT Family Medicine; ATTEND Family Medicine

== ENCOUNTER 2021-01-16 08:46 | Observation (INO) ==
[2021-01-16] MEDS ORDERED: 0.9 % Sodium Chloride 1,000 ML IVC ONE (09:11)
[2021-01-16] MEDS ORDERED: Ondansetron 4 MG/2 ML VIAL IVP ONE (09:13)
[2021-01-16 09:39] LABS: Bilirubin,Urine Negative (Negative); Blood,Urine Trace-intact (Negative); Clarity,Urine Clear (Clear); Color,Urine Yellow (Yellow); Glucose,Urine (UA) Normal (Normal); Ketones,Urine Negative (Negative); Leukocyte Esterase,Urine Negative (Negative); Nitrite,Urine Negative (Negative); PH,Urine 8.5 pH Units (5.0-8.0); Protein,Urine 30 mg/dL (Neg-Trace); Urobilinogen,Urine Normal (Normal)
[2021-01-16 09:40] LABS: Bacteria,Urine Few per hpf (None-Few); RBC,Urine 0-3 per hpf (0-3); WBC,Urine 0-3 per hpf (0-3)
[2021-01-16 10:19] LABS: Basophils % 0.5 %; Eosinophils # 0.1 K/mcL (0.0-0.6); Eosinophils % 1.1 %; Hematocrit 39.1 % (35.3-44.9); Hemoglobin 12.8 g/dL (11.5-15.4); Immature Granulocytes % 0.5 % (0-4); Lymphocytes # 0.6 K/mcL (0.6-4.6); Lymphocytes % 9.9 %; Mean Corpuscular HGB Conc 32.7 g/dL (31.6-35.5); Mean Corpuscular Hemoglobin 30.3 pg (28.0-33.3); Mean Corpuscular Volume 92.7 fL (83.0-100.0); Mean Platelet Volume 9.4 fL (9.4-12.4); Monocytes # 0.5 K/mcL (0.0-1.3); Monocytes % 7.8 %; Neutrophils # 5.1 K/mcL (1.6-8.9); Platelet Count 210 K/mcL (140-400); Red Blood Count 4.22 M/mcL (3.82-4.97); Red Cell Distribution Width 12.6 % (11.5-14.5); Segmented Neutrophils % 80.2 %; White Blood Count 6.4 K/mcL (4.3-11.1)
[2021-01-16 10:25] LABS: INR 1.1; Prothrombin Time 12.3 Seconds (9.4-12.1)
[2021-01-16 10:28] LABS: Activated Partial Thrombo Time 31.4 Seconds (26.0-36.0)
[2021-01-16 10:37] LABS: Alanine Aminotransferase 10 Units/L (7-52); Albumin 4.2 g/dL (3.5-5.7); Alkaline Phosphatase 49 Units/L (34-104); Aspartate Amino Transferase 14 Units/L (13-39); BUN/Creatinine Ratio 14 (6-26); Bilirubin,Direct 0.1 mg/dL (0.0-0.2); Bilirubin,Indirect 0.4 mg/dL (0.0-1.0); Bilirubin,Total 0.5 mg/dL (0.3-1.0); Blood Urea Nitrogen 10 mg/dL (8-23); Calcium 8.9 mg/dL (8.6-10.3); Carbon Dioxide 25 mEq/L (23-29); Chloride 102 mEq/L (98-107); Ethanol < 10 mg/dL (Less than 10); Globulin 2.1 g/dL (2.4-3.5); Glucose 120 mg/dL (70-105); Osmolality,Calculated 284 (280-300); Sodium 137 mEq/L (136-145); Total Protein 6.3 g/dL (6.4-8.9); eGFR For African Americans > 60 (> 60); eGFR For Non-African Americans > 60 (> 60)
[2021-01-16 10:38] LABS: Troponin I < 0.03 ng/mL (< 0.04)
[2021-01-16 12:32] LABS: Amphetamine Screen,Urine Negative ng/mL (Cutoff=1000); Barbiturate Screen,Urine Negative ng/mL (Cutoff=200); Benzodiazepines Screen,Urine Negative ng/mL (Cutoff=200); Cannabinoid Screen,Urine Negative ng/mL (Cutoff = 50); Cocaine Screen,Urine Negative ng/mL (Cutoff= 300); Opiate Screen,Urine Positive ng/mL (Cutoff=300); Phencyclidine Screen,Urine Negative ng/mL (Cutoff=25)
[2021-01-16] MEDS ORDERED: Ondansetron ODT 4 MG TAB.RAPDIS SL PRN (16:53)
[2021-01-16] MEDS ORDERED: Naloxone 0.4 MG/ML INJ IVP PRN (16:53)
[2021-01-16] MEDS ORDERED: 0.9 % Sodium Chloride 1,000 ML IVC SCH (16:53)
[2021-01-16] MEDS: SUMAtriptan succinate 25 MG TABLET PO PRN (17:44)
[2021-01-16 20:11] LABS: Folate > 22.3 ng/mL (3.0-16.0); Vitamin B12 309 pg/mL (250-1100)
[2021-01-16] MEDS ORDERED: Melatonin 3 MG TABLET PO SCH (21:00)
[2021-01-16] MEDS: Ketorolac 30 MG/ML VIAL IVP PRN (21:18)
[2021-01-16] MEDS: Acetaminophen 325 MG TABLET PO PRN (23:28)
[2021-01-16 23:45] LABS: Adenovirus Not Detected (Not Detect); Bordetella Pertussis Not Detected (Not Detect); Chlamydophila pneumoniae Not Detected (Not Detect); Coronavirus 229E Not Detected (Not Detect); Coronavirus HKU1 Not Detected (Not Detect); Coronavirus NL63 Not Detected (Not Detect); Coronavirus OC43 Not Detected (Not Detect); Human Metapneumovirus Not Detected (Not Detect); Human Rhinovirus/Enterovirus Not Detected (Not Detect); Influenza A Subtype 2009 H1 Not Detected (Not Detect); Influenza B Not Detected (Not Detect); Mycoplasma pneumoniae Not Detected (Not Detect); Parainfluenza Virus 1 Not Detected (Not Detect); Parainfluenza Virus 2 Not Detected (Not Detect); Parainfluenza Virus 3 Not Detected (Not Detect); Parainfluenza Virus 4 Not Detected (Not Detect); Respiratory Syncytial Virus Not Detected (Not Detect); SARS-CoV-2 Not Detected (Not Detect)
[2021-01-17] MEDS: SUMAtriptan succinate 25 MG TABLET PO PRN (01:16)
[2021-01-17] MEDS: Ketorolac 30 MG/ML VIAL IVP PRN ×2 (03:44→10:45)
[2021-01-17 05:01] LABS: Basophils % 0.8 %; Eosinophils # 0.2 K/mcL (0.0-0.6); Eosinophils % 4.4 %; Hematocrit 39.8 % (35.3-44.9); Hemoglobin 13.1 g/dL (11.5-15.4); Immature Granulocytes % 0.5 % (0-4); Lymphocytes % 24.5 %; Mean Corpuscular HGB Conc 32.9 g/dL (31.6-35.5); Mean Corpuscular Hemoglobin 30.8 pg (28.0-33.3); Mean Corpuscular Volume 93.6 fL (83.0-100.0); Mean Platelet Volume 11.2 fL (9.4-12.4); Monocytes # 0.5 K/mcL (0.0-1.3); Monocytes % 13.4 %; Neutrophils # 2.2 K/mcL (1.6-8.9); Red Blood Count 4.25 M/mcL (3.82-4.97); Red Cell Distribution Width 12.4 % (11.5-14.5); Segmented Neutrophils % 56.4 %; White Blood Count 3.9 K/mcL (4.3-11.1)
[2021-01-17 05:05] LABS: Platelet Count 130 K/mcL (140-400)
[2021-01-17 05:17] LABS: Alanine Aminotransferase 10 Units/L (7-52); Albumin 4.3 g/dL (3.5-5.7); Albumin/Globulin Ratio 1.9 (1.1-2.2); Alkaline Phosphatase 52 Units/L (34-104); Aspartate Amino Transferase 18 Units/L (13-39); BUN/Creatinine Ratio 14 (6-26); Bilirubin,Direct 0.1 mg/dL (0.0-0.2); Bilirubin,Indirect 0.3 mg/dL (0.0-1.0); Bilirubin,Total 0.4 mg/dL (0.3-1.0); Blood Urea Nitrogen 10 mg/dL (8-23); Calcium 9.1 mg/dL (8.6-10.3); Carbon Dioxide 24 mEq/L (23-29); Chloride 105 mEq/L (98-107); Globulin 2.3 g/dL (2.4-3.5); Glucose 104 mg/dL (70-105); Osmolality,Calculated 285 (280-300); Potassium 4.4 mEq/L (3.5-5.1); Sodium 138 mEq/L (136-145); Total Protein 6.6 g/dL (6.4-8.9); eGFR For African Americans > 60 (> 60); eGFR For Non-African Americans > 60 (> 60)
[2021-01-17] MEDS ORDERED: *HR* Enoxaparin 40 MG/0.4 ML SYRINGE SQ SCH ×3 (06:00→09:00)
[2021-01-17] MEDS ORDERED: Cholecalciferol (D-3) 1,000 UNIT (25MCG) TABLET PO SCH (09:00)
[2021-01-17] MEDS ORDERED: cefTRIAXone 1,000 MG in Water for inj. (sterile) 10 ML IVP SCH (09:00)
[2021-01-17] MEDS ORDERED: Celecoxib 200 MG CAPSULE PO SCH ×2 (09:00)
[2021-01-17] MEDS ORDERED: Multivit/Ca/Min/Fe/FA 1 TAB TABLET PO SCH (09:00)
[2021-01-17] MEDS ORDERED: Magnesium Oxide 400 MG TABLET PO SCH (09:00)
[2021-01-17] MEDS: Acetaminophen 325 MG TABLET PO PRN (09:20)
[2021-01-17 15:08] VITALS: BP 150/73
== END 2021-01-17 16:20 | disposition home or self-care (01) ==
LOC: INPGRE 08:46 → EMEROOGRE 08:46 → INPGRE 12:30
PROVIDERS: ADMIT Family Medicine; ATTEND Family Medicine

== ENCOUNTER 2021-05-22 11:13 | Observation (INO) ==
[2021-05-22 11:42] LABS: Bilirubin,Urine Small (Negative); Blood,Urine Negative (Negative); Clarity,Urine Clear (Clear); Glucose,Urine (UA) Normal (Normal); Ketones,Urine Trace mg/dL (Negative); Leukocyte Esterase,Urine Trace (Negative); Nitrite,Urine Negative (Negative); Protein,Urine 30 mg/dL (Neg-Trace); Specific Gravity,Urine >= 1.030 (1.010-1.025); Urobilinogen,Urine Normal (Normal)
[2021-05-22 11:47] LABS: Color,Urine Dark Yellow (Yellow)
[2021-05-22 11:48] LABS: Amorphous Sediment,Urine Few per hpf (None-Few); Bacteria,Urine Few per hpf (None-Few); Squamous Epithelial Cell,Urine Moderate per hpf (None-Few); WBC,Urine 0-3 per hpf (0-3)
[2021-05-22 12:07] LABS: Amphetamine Screen,Urine Negative ng/mL (Cutoff=1000); Barbiturate Screen,Urine Negative ng/mL (Cutoff=200); Benzodiazepines Screen,Urine Negative ng/mL (Cutoff=200); Cannabinoid Screen,Urine Positive ng/mL (Cutoff = 50); Cocaine Screen,Urine Negative ng/mL (Cutoff= 300); Opiate Screen,Urine Positive ng/mL (Cutoff=300); Phencyclidine Screen,Urine Negative ng/mL (Cutoff=25)
[2021-05-22 12:26] LABS: Basophils # 0.1 K/mcL (0.0-0.2); Basophils % 1.1 %; Eosinophils # 0.2 K/mcL (0.0-0.6); Eosinophils % 3.9 %; Hematocrit 40.7 % (35.3-44.9); Hemoglobin 13.5 g/dL (11.5-15.4); Immature Granulocytes % 0.3 % (0-4); Lymphocytes # 1.7 K/mcL (0.6-4.6); Lymphocytes % 27.3 %; Mean Corpuscular HGB Conc 33.2 g/dL (31.6-35.5); Mean Corpuscular Volume 90.4 fL (83.0-100.0); Mean Platelet Volume 9.3 fL (9.4-12.4); Monocytes # 0.6 K/mcL (0.0-1.3); Neutrophils # 3.6 K/mcL (1.6-8.9); Platelet Count 372 K/mcL (140-400); Red Cell Distribution Width 13.4 % (11.5-14.5); Segmented Neutrophils % 57.4 %; White Blood Count 6.2 K/mcL (4.3-11.1)
[2021-05-22 12:32] LABS: Prothrombin Time 12.1 Seconds (9.4-12.1)
[2021-05-22 12:35] LABS: Activated Partial Thrombo Time 28.4 Seconds (26.0-36.0)
[2021-05-22 12:41] LABS: Alanine Aminotransferase 12 Units/L (7-52); Albumin 4.3 g/dL (3.5-5.7); Albumin/Globulin Ratio 1.8 (1.1-2.2); Alkaline Phosphatase 79 Units/L (34-104); Aspartate Amino Transferase 15 Units/L (13-39); BUN/Creatinine Ratio 14 (6-26); Bilirubin,Total 0.5 mg/dL (0.3-1.0); Blood Urea Nitrogen 11 mg/dL (8-23); Calcium 9.6 mg/dL (8.6-10.3); Carbon Dioxide 29 mEq/L (23-29); Chloride 103 mEq/L (98-107); Globulin 2.4 g/dL (2.4-3.5); Glucose 121 mg/dL (70-105); Magnesium 1.8 mg/dL (1.6-2.6); Osmolality,Calculated 291 (280-300); Phosphorous 2.8 mg/dL (2.7-4.5); Potassium 3.3 mEq/L (3.5-5.1); Sodium 140 mEq/L (136-145); Total Protein 6.7 g/dL (6.4-8.9); eGFR For African Americans > 60 (> 60); eGFR For Non-African Americans > 60 (> 60)
[2021-05-22] MEDS ORDERED: Isovue-370 500 ML BOTTLE IVP ONE (12:43)
[2021-05-22] MEDS ORDERED: 0.9 % Sodium Chloride 1,000 ML IV ONE (12:44)
[2021-05-22 12:55] LABS: Troponin I <= 0.04 ng/mL (0-0.04)
[2021-05-22] MEDS ORDERED: Ondansetron 4 MG/2 ML VIAL IVP ONE (13:29)
[2021-05-22] MEDS ORDERED: Naloxone 0.4 MG/ML INJ IVP PRN (15:09)
[2021-05-22] MEDS ORDERED: Ondansetron 4 MG/2 ML VIAL IVP PRN (15:09)
[2021-05-22] MEDS ORDERED: *HR* HYDROcodone/Acet 5/325 mg TABLET PO PRN (15:09)
[2021-05-22] MEDS ORDERED: SUMAtriptan succinate 25 MG TABLET PO PRN (15:55)
[2021-05-22] MEDS: 0.9 % Sodium Chloride 1,000 ML IVC SCH (17:29)
[2021-05-22] MEDS ORDERED: Melatonin 3 MG TABLET PO SCH (21:00)
[2021-05-22] MEDS ORDERED: Ketorolac 15 MG/ML VIAL IVP PRN (22:27)
[2021-05-23 04:48] LABS: Basophils # 0.1 K/mcL (0.0-0.2); Basophils % 0.8 %; Eosinophils # 0.3 K/mcL (0.0-0.6); Eosinophils % 4.7 %; Hematocrit 36.4 % (35.3-44.9); Immature Granulocytes % 0.5 % (0-4); Lymphocytes # 1.7 K/mcL (0.6-4.6); Lymphocytes % 27.9 %; Mean Corpuscular Hemoglobin 29.7 pg (28.0-33.3); Mean Corpuscular Volume 90.1 fL (83.0-100.0); Mean Platelet Volume 9.3 fL (9.4-12.4); Monocytes # 0.5 K/mcL (0.0-1.3); Monocytes % 9.1 %; Neutrophils # 3.4 K/mcL (1.6-8.9); Platelet Count 282 K/mcL (140-400); Red Blood Count 4.04 M/mcL (3.82-4.97); Red Cell Distribution Width 13.3 % (11.5-14.5); White Blood Count 5.9 K/mcL (4.3-11.1)
[2021-05-23 05:03] LABS: BUN/Creatinine Ratio 9 (6-26); Blood Urea Nitrogen 7 mg/dL (8-23); Calcium 8.6 mg/dL (8.6-10.3); Carbon Dioxide 27 mEq/L (23-29); Chloride 109 mEq/L (98-107); Glucose 116 mg/dL (70-105); Osmolality,Calculated 295 (280-300); Potassium 3.8 mEq/L (3.5-5.1); Sodium 143 mEq/L (136-145); eGFR For African Americans > 60 (> 60); eGFR For Non-African Americans > 60 (> 60)
[2021-05-23] MEDS: *HR* Enoxaparin 40 MG/0.4 ML SYRINGE SQ SCH (05:29)
[2021-05-23] MEDS: 0.9 % Sodium Chloride 1,000 ML IVC SCH (06:54)
[2021-05-23] MEDS: levoFLOXacin 750 MG/150 ML 750 MG/150 ML BAG IVPB SCH (08:30)
[2021-05-23] MEDS: Magnesium Oxide 400 MG TABLET PO SCH (08:30)
[2021-05-23] MEDS ORDERED: Cholecalciferol (D-3) 1,000 UNIT (25MCG) TABLET PO SCH (09:00)
[2021-05-23] MEDS ORDERED: Multivit/Ca/Min/Fe/FA 1 TAB TABLET PO SCH (09:00)
[2021-05-23] MEDS: Ketorolac 15 MG/ML VIAL IVP PRN ×2 (12:21→18:36)
[2021-05-23] MEDS ORDERED: Ketorolac 15 MG/ML VIAL IVP STA (20:46)
[2021-05-24] MEDS: *HR* Enoxaparin 40 MG/0.4 ML SYRINGE SQ SCH (06:55)
[2021-05-24] MEDS: Ketorolac 15 MG/ML VIAL IVP PRN (06:56)
[2021-05-24] MEDS: levoFLOXacin 750 MG/150 ML 750 MG/150 ML BAG IVPB SCH (08:53)
[2021-05-24] MEDS: Magnesium Oxide 400 MG TABLET PO SCH (08:53)
[2021-05-24 11:36] VITALS: BP 153/97
== END 2021-05-24 12:15 | disposition home or self-care (01) ==
LOC: INPGRE 11:13 → EMEROOGRE 11:13 → INPGRE 14:59
PROVIDERS: ADMIT Family Medicine; ATTEND Family Medicine